=== PATIENT | female | born 1945 | race Hispanic/Latino ===

== ENCOUNTER 2019-09-23 10:49 | Outpatient (CLI) | payer MEDICARE, MEDICAID ==
--- NOTE | 2019-09-26 11:09 | MMO ---
Bilateral MAMMO Bilat Screen [facility]. CLINICAL HISTORY: Patient is 73 years old and is seen for screening. The patient has no family history of breast cancer. The patient has no personal history of cancer. VIEWS: The views performed were: bilateral craniocaudal with tomosynthesis and bilateral mediolateral oblique with tomosynthesis. FILMS COMPARED: The present examination has been compared to prior imaging studies performed at [facility] on 05/08/2000, 06/24/2004, 01/21/2006 and 01/22/2007. This study has been interpreted with the assistance of computer-aided detection. MAMMOGRAM FINDINGS: There are scattered fibroglandular densities. There are no suspicious masses, suspicious calcifications, or new areas of architectural distortion. IMPRESSION: THERE IS NO MAMMOGRAPHIC EVIDENCE OF MALIGNANCY. A ROUTINE FOLLOW-UP MAMMOGRAM IN 1 YEAR IS RECOMMENDED. THE RESULTS OF THIS EXAM WERE SENT TO THE PATIENT. ACR BI-RADS Category 1 - Negative MAMMOGRAPHY NOTE: 1. A negative mammogram report should not delay a biopsy if a dominant of clinically suspicious mass is present. 2. Approximately 10% to 15% of breast cancers are not detected by mammography. 3. Adenosis and dense breasts may obscure an underlying neoplasm. Reported by: Linda ROSAS Electonically Signed: [id number]
== END 2019-09-23 10:50 | disposition home or self-care (01) ==
LOC: BICMAMMO 10:49
PROVIDERS: ATTEND Family Medicine
DX: Z12.31 Encounter for screening mammogram for malignant neoplasm of breast (principal)
CPT/HCPCS: 77063; 77067

== ENCOUNTER 2020-08-24 15:27 | Outpatient (CLI) | payer MEDICARE, MEDICAID ==
--- NOTE | 2020-08-24 16:58 | RAD ---
EXAM: 3 views of the right toe HISTORY: First metatarsal pain COMPARISON: None FINDINGS: There is no evidence of acute fracture or dislocation. No osseous erosions are seen. 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 Mild plantar soft tissue swelling is seen. Mild great toe interphalangeal joint degenerative changes are p resent. No radiopaque foreign body is seen. Vascular calcifications are seen. IMPRESSION: Degenerative changes without acute osseous abnormality.
== END 2020-08-24 15:28 | disposition home or self-care (01) ==
LOC: BICRAD 15:27
DX: S99.921A Unspecified injury of right foot, initial encounter (principal); M19.071 Primary osteoarthritis, right ankle and foot

== ENCOUNTER 2021-02-03 17:47 | Emergency (ER) | payer MEDICARE, MEDICAID ==
[2021-02-03] MEDS ORDERED: Ketorolac Tromethamine 30 MG/ML VIAL ONE (18:45)
== END 2021-02-03 19:20 | disposition home or self-care (01) ==
LOC: ERS 17:47
DX: R51.9 Headache, unspecified (principal); E11.9 Type 2 diabetes mellitus without complications
CPT/HCPCS: 70450; 96372; J1885

== ENCOUNTER 2023-12-30 08:04 | Inpatient (IN) | payer MEDICAID, MEDICARE ==
[2023-12-30 09:12] LABS: #Basophils 0.05 10x3/uL (0.0-0.2); %Basophils 0.5 % (0.0-1.0); %Eosinophils 3.6 % (0.0-10.0); %Lymphocytes 11.6 % (21.0-51.0); %Monocytes 3.8 % (0.0-10.0); Hemoglobin 13.9 g/dL (12.0-16.0); Mean Corpuscular HGB CONC 34.8 g/dL (32.0-36.0); Mean Corpuscular Hemoglobin 29.9 pg (27.0-31.0); Mean Platelet Volume 10.6 fL (7.4-10.4); Platelet Count 162 10x3/uL (130-400); RBC Distribution Width 12.1 % (11.5-14.5); Red Blood Cell (RBC) Count 4.65 mill/uL (4.20-5.40)
[2023-12-30] MEDS ORDERED: Acetaminophen 500 MG TAB ONE (09:17)
[2023-12-30 09:26] LABS: ALT (SGPT) 7 U/L (8-55); AST (SGOT) 18 U/L (5-34); Alkaline Phosphatase 122 U/L (40-110); Anion Gap 12 mmol/L (10-20); BUN (Urea Nitrogen) 21 mg/dL (9.8-20.1); Bilirubin, Total 0.5 mg/dL (0.2-1.2); Calc. Creatinine Clearance 0 mL/min (70-130); Calcium 8.8 mg/dL (7.8-10.44); Carbon Dioxide 26 mmol/L (23-31); Chloride 103 mmol/L (98-107); Estimated GFR 42; Globulin 3.8 g/dL (2.4-3.5); Glucose 343 mg/dL (83-110); Lipase 6 U/L (8-78); Magnesium 1.9 mg/dL (1.6-2.6); Potassium 4.8 mmol/L (3.5-5.1); Protein, Total 6.8 g/dL (5.8-8.1); Sodium 136 mmol/L (136-145)
[2023-12-30 09:31] LABS: Troponin I 0.061 ng/mL (< 0.028)
[2023-12-30 09:42] LABS: Digoxin Less than 0.19 ng/mL (0.8-2.0)
[2023-12-30] MEDS ORDERED: Aspirin Chewable 81 MG TAB ONE (10:50)
[2023-12-30] MEDS ORDERED: Iopamidol-370 76% 500 ML MDV (1 ML CHARGE) ONE (11:14)
[2023-12-30] MEDS ORDERED: Senokot S 8.6-50 MG TAB PO PRN (11:42)
[2023-12-30] MEDS ORDERED: Ondansetron PF 4 MG/2 ML Vial IVP PRN (11:42)
[2023-12-30] MEDS ORDERED: Cyclobenzaprine 10 MG TAB PO PRN (11:43)
[2023-12-30] MEDS ORDERED: Dextrose 50% Abboject 50 ML SYRINGE SLOW IVP PRN (11:44)
[2023-12-30] MEDS ORDERED: HumaLOG 300 UNITS/3 ML VIAL SC PRN (11:44)
[2023-12-30] MEDS ORDERED: Dextrose 5% in Water 1,000 ML IV PRN (11:44)
[2023-12-30] MEDS ORDERED: Glucagon 1 MG/ML KIT IM PRN (11:44)
[2023-12-30] MEDS ORDERED: Albuterol 2.5 MG (3 mL) NEB NEB PRN (11:48)
[2023-12-30] MEDS ORDERED: Benzonatate 100 MG CAP PO PRN (11:48)
[2023-12-30] MEDS ORDERED: Furosemide 40 MG (4 mL) VIAL ONE (12:39)
[2023-12-30] MEDS ORDERED: Loratadine 10 MG TAB ONE (12:40)
[2023-12-30] MEDS ORDERED: Furosemide 20 MG (2 mL) VIAL ONE (12:40)
[2023-12-30 12:41] LABS: Troponin I 0.057 ng/mL (< 0.028)
[2023-12-30] MEDS: Amlodipine 10 MG TAB PO SCH (12:53)
[2023-12-30] MEDS: Loratadine 5 MG/5 ML ORAL SYRUP UDCUP PO SCH (12:55)
[2023-12-30] MEDS: Insulin Glargine 30 UNITS/0.3 ML VIAL SC SCH (12:55)
[2023-12-30] MEDS: Furosemide 40 MG (4 mL) VIAL SLOW IVP SCH (13:00)
[2023-12-30 13:45] VITALS: BMI 53.8
[2023-12-30] MEDS: Calcium Carbonate 500 MG ChewTAB PO PRN (16:18)
[2023-12-30] MEDS: Albumin 25% 25 GM (100 mL) BOT IVPB SCH (16:18)
[2023-12-30] MEDS: glipiZIDE 5 MG TAB PO SCH (17:19)
[2023-12-30 17:22] LABS: Troponin I 0.067 ng/mL (< 0.028)
[2023-12-30] MEDS: HumaLOG 300 UNITS/3 ML VIAL SC PRN (17:35)
[2023-12-30] MEDS: Atorvastatin Calcium 40 MG TAB PO SCH (20:45)
[2023-12-30] MEDS: Montelukast Sodium 10 mg Tablet PO SCH (20:45)
[2023-12-31 04:30] LABS: #Basophils 0.06 10x3/uL (0.0-0.2); %Basophils 0.8 % (0.0-1.0); %Eosinophils 5.2 % (0.0-10.0); %Lymphocytes 20.1 % (21.0-51.0); %Monocytes 5.5 % (0.0-10.0); %Neutrophils 68.1 % (42.0-75.0); Hematocrit 36.5 % (36.0-47.0); Hemoglobin 12.2 g/dL (12.0-16.0); Mean Corpuscular HGB CONC 33.4 g/dL (32.0-36.0); Mean Corpuscular Hemoglobin 28.8 pg (27.0-31.0); Mean Corpuscular Volume 86.3 fL (78.0-98.0); Mean Platelet Volume 10.5 fL (7.4-10.4); Platelet Count 162 10x3/uL (130-400); RBC Distribution Width 12.1 % (11.5-14.5); Red Blood Cell (RBC) Count 4.23 mill/uL (4.20-5.40)
[2023-12-31 04:40] LABS: Hemoglobin A1c 10.2 % (4.0-6.0)
[2023-12-31 04:48] LABS: ALT (SGPT) 7 U/L (8-55); AST (SGOT) 16 U/L (5-34); Albumin 4.1 g/dL (3.4-4.8); Alkaline Phosphatase 84 U/L (40-110); Anion Gap 13 mmol/L (10-20); BUN (Urea Nitrogen) 20 mg/dL (9.8-20.1); Bilirubin, Total 0.4 mg/dL (0.2-1.2); Calc. Creatinine Clearance 63 mL/min (70-130); Calcium 9.4 mg/dL (7.8-10.44); Carbon Dioxide 25 mmol/L (23-31); Cardiac Risk 4.9 (Less than 4.5); Chloride 103 mmol/L (98-107); Cholesterol 163 mg/dl (< 200 Desired); Estimated GFR 43; Glucose 98 mg/dL (83-110); HDL Cholesterol 33 mg/dL (>60 Neg Risk); LDL Cholesterol, Calculated 93 mg/dL; Magnesium 2.1 mg/dL (1.6-2.6); Potassium 4.2 mmol/L (3.5-5.1); Protein, Total 7.1 g/dL (5.8-8.1); Sodium 137 mmol/L (136-145); Triglycerides 184 mg/dL (Less than 150)
[2023-12-31] MEDS: Furosemide 20 MG (2 mL) VIAL SLOW IVP SCH (06:13)
[2023-12-31] MEDS: Loratadine 10 MG TAB PO SCH (08:56)
[2023-12-31] MEDS: Pantoprazole DR 40 MG TAB PO SCH (08:56)
[2023-12-31] MEDS: Aspirin 81 mg Enteric Coated Tablet PO SCH (08:56)
[2023-12-31] MEDS: Enoxaparin 40 MG (0.4 mL) SYRINGE SC SCH (08:56)
[2023-12-31] MEDS: cefTRIAXone\\ROCEPHIN 1 GM in Sodium Chloride 0.9% 100 ML IVPB SCH (11:55)
[2023-12-31] MEDS: Insulin Glargine 30 UNITS/0.3 ML VIAL SC SCH (12:00)
[2023-12-31] MEDS: Azithromycin 500 MG in Sodium Chloride 0.9% 250 ML 250 ML IVPB SCH (12:33)
[2023-12-31] MEDS: Acetaminophen 325 MG TAB PO PRN (18:11)
[2023-12-31 22:40] LABS: Magnesium 1.9 mg/dL (1.6-2.6); Potassium 4.2 mmol/L (3.5-5.1)
[2024-01-01 04:23] LABS: #Basophils 0.04 10x3/uL (0.0-0.2); %Basophils 0.5 % (0.0-1.0); %Eosinophils 6.1 % (0.0-10.0); %Monocytes 7.4 % (0.0-10.0); %Neutrophils 60.5 % (42.0-75.0); Hematocrit 33.9 % (36.0-47.0); Hemoglobin 11.6 g/dL (12.0-16.0); Mean Corpuscular HGB CONC 34.2 g/dL (32.0-36.0); Mean Corpuscular Hemoglobin 29.4 pg (27.0-31.0); Mean Corpuscular Volume 85.8 fL (78.0-98.0); Mean Platelet Volume 10.9 fL (7.4-10.4); Platelet Count 169 10x3/uL (130-400); RBC Distribution Width 12.4 % (11.5-14.5); Red Blood Cell (RBC) Count 3.95 mill/uL (4.20-5.40)
[2024-01-01 04:45] LABS: Anion Gap 12 mmol/L (10-20); BUN (Urea Nitrogen) 24 mg/dL (9.8-20.1); Calc. Creatinine Clearance 27 mL/min (70-130); Carbon Dioxide 27 mmol/L (23-31); Chloride 103 mmol/L (98-107); Estimated GFR 28; Glucose 139 mg/dL (83-110); Potassium 4.2 mmol/L (3.5-5.1); Sodium 138 mmol/L (136-145)
[2024-01-01] MEDS: Enoxaparin 30 MG (0.3 mL) SYRINGE SC SCH (09:56)
[2024-01-01] MEDS: Sodium Chloride 0.9% 1,000 ML IV SCH (10:42)
[2024-01-02 07:11] LABS: #Basophils 0.04 10x3/uL (0.0-0.2); %Basophils 0.6 % (0.0-1.0); %Eosinophils 7.4 % (0.0-10.0); %Monocytes 6.7 % (0.0-10.0); %Neutrophils 64.7 % (42.0-75.0); Hematocrit 35.3 % (36.0-47.0); Hemoglobin 12.1 g/dL (12.0-16.0); Mean Corpuscular HGB CONC 34.3 g/dL (32.0-36.0); Mean Corpuscular Hemoglobin 29.7 pg (27.0-31.0); Mean Corpuscular Volume 86.5 fL (78.0-98.0); Mean Platelet Volume 10.6 fL (7.4-10.4); Platelet Count 158 10x3/uL (130-400); RBC Distribution Width 12.3 % (11.5-14.5); Red Blood Cell (RBC) Count 4.08 mill/uL (4.20-5.40)
[2024-01-02 07:33] LABS: Anion Gap 12 mmol/L (10-20); BUN (Urea Nitrogen) 21 mg/dL (9.8-20.1); Calc. Creatinine Clearance 36 mL/min (70-130); Calcium 8.5 mg/dL (7.8-10.44); Carbon Dioxide 24 mmol/L (23-31); Chloride 107 mmol/L (98-107); Estimated GFR 40; Glucose 130 mg/dL (83-110); Potassium 4.1 mmol/L (3.5-5.1); Sodium 139 mmol/L (136-145)
[2024-01-02 08:28] VITALS: BP 135/63; TEMP 97.9
[2024-01-02] MEDS: Furosemide 20 MG TAB PO SCH (09:05)
[2024-01-04] MEDS ORDERED: Loratadine 10 MG TAB PO PRN (11:59)
== END 2024-01-02 10:30 | disposition home or self-care (01) | DRG 280 ==
LOC: ERS 08:04 → ERHOLD 11:06 → 2SW 15:38 → OBSVTOIN 12-31 16:12
PROVIDERS: ADMIT Internal Medicine; ATTEND Internal Medicine
DX: I13.0 Hypertensive heart and chronic kidney disease with heart failure and stage 1 through stage 4 chronic kidney disease, or unspecified chronic kidney disease (principal); I50.33 Acute on chronic diastolic (congestive) heart failure; I21.A1 Myocardial infarction type 2; J18.9 Pneumonia, unspecified organism; N17.9 Acute kidney failure, unspecified; E11.22 Type 2 diabetes mellitus with diabetic chronic kidney disease; E11.65 Type 2 diabetes mellitus with hyperglycemia; E78.5 Hyperlipidemia, unspecified; I25.10 Atherosclerotic heart disease of native coronary artery without angina pectoris; J30.2 Other seasonal allergic rhinitis; N18.30 Chronic kidney disease, stage 3 unspecified; Z79.899 Other long term (current) drug therapy; Z79.84 Long term (current) use of oral hypoglycemic drugs
CPT/HCPCS: 36415; 36416; 71045; 71275; 74174; 80048; 80053; 80061; 80162; 83036; 83690; 83735; 83880; 84443; 84484; 85025; 93005; 93306; 93798; 96372; 96374; 96375; 96376; G0378; J0456; J0696; J1650; J1815; J1940; J3490; J7050; P9047; Q9967

== ENCOUNTER 2024-07-06 16:43 | Inpatient (IN) | payer MEDICARE ==
[2024-07-06] MEDS ORDERED: Acetaminophen 500 MG TAB ONE (17:29)
[2024-07-06 17:32] LABS: Hematocrit 37.3 % (36.0-47.0); Hemoglobin 12.6 g/dL (12.0-16.0); Mean Corpuscular HGB CONC 33.8 g/dL (32.0-36.0); Mean Corpuscular Hemoglobin 29.2 pg (27.0-31.0); Mean Corpuscular Volume 86.3 fL (78.0-98.0); Mean Platelet Volume 11.5 fL (7.4-10.4); Platelet Count 67 10x3/uL (130-400); RBC Distribution Width 12.8 % (11.5-14.5); Red Blood Cell (RBC) Count 4.32 mill/uL (4.20-5.40)
[2024-07-06] MEDS ORDERED: Cefepime 2 GM VIAL ONE (17:37)
[2024-07-06] MEDS ORDERED: Sodium Chloride 0.9% 100 ML ONE (17:37)
[2024-07-06 17:52] LABS: ALT (SGPT) 10 U/L (8-55); AST (SGOT) 21 U/L (5-34); Albumin 2.9 g/dL (3.4-4.8); Alkaline Phosphatase 172 U/L (40-110); Anion Gap 15 mmol/L (10-20); BUN (Urea Nitrogen) 34 mg/dL (9.8-20.1); Bilirubin, Total 0.9 mg/dL (0.2-1.2); Calc. Creatinine Clearance 0 mL/min (70-130); Calcium 8.3 mg/dL (7.8-10.44); Carbon Dioxide 18 mmol/L (23-31); Chloride 104 mmol/L (98-107); Estimated GFR 19; Globulin 3.6 g/dL (2.4-3.5); Glucose 352 mg/dL (83-110); Potassium 4.4 mmol/L (3.5-5.1); Protein, Total 6.5 g/dL (5.8-8.1); Sodium 133 mmol/L (136-145)
[2024-07-06 17:54] LABS: Troponin I 0.125 ng/mL (< 0.028)
[2024-07-06 18:01] LABS: Band 24 % (5-11); Eosinophils 1 % (0-10); Large Platelets 3.8 % (0-5); Lymphocytes 21 % (21-51); Monocytes 1 % (0-10); Neutrophil 54 % (42-75); Nucleated RBC (Manual Ct) 1 % (0); Platelet Adequacy Comment Platelets Decreased; Polychromasia SLIGHT = 2-3 cells HPF (0-2); Smudge Cells 11.3 %
[2024-07-06 18:47] LABS: Analyzer IN Cardio ER; Base Excess -6.8 mEq/L (-2.0 to +3.0); Calcium, Ionized (venous) 1.03 mmol/L (1.16-1.32); Chloride (VBG) 104 mmol/L (98-106); Hematocrit-VBG 35 % (36.0-47.0); Hemoglobin (Hb) 11.8 g/dL (11.7-16.1); Potassium (VBG) 3.86 mmol/L (3.70-5.30); Sodium 135 mmol/L (133-146); pH (venous) 7.346 (7.32-7.43)
[2024-07-06 19:18] LABS: Lipase Less than 4 U/L (8-78); Magnesium 1.8 mg/dL (1.6-2.6)
[2024-07-06 19:23] LABS: Phosphorus 1.2 mg/dL (2.3-4.7)
[2024-07-06] MEDS ORDERED: Ondansetron PF 4 MG/2 ML Vial ONE (19:30)
[2024-07-06] MEDS ORDERED: NOREPINEPHRINE 8 MG/250 ML-D5W 250 ML ONE (19:44)
[2024-07-06 20:36] LABS: Bilirubin Negative (Negative); Blood, Urine 3+ (Negative); CAUTI Indications for Culture Dysuria,urgency,freq; Clarity Turbid (Clear); Glucose, Urine (Dipstick) Greater than 1000 mg/dL (Negative); Ketone, Urine Negative (Negative); Leukocyte 500 Leu/uL (Negative); Nitrite Negative (Negative); Protein, Urine (Dipstick) 100 mg/dL (Neg-Trace); RBC/HPF Greater than 50 HPF (0-3); Specific Gravity, Urine 1.021 (1.002-1.036); Squamous Epithelial 0-3 HPF (0-3); Urobilinogen Normal mg/dL (Less than 2); WBC/HPF Greater than 50 HPF (0-3); pH, Urine 5.5 (5.0-9.0)
[2024-07-06 20:38] LABS: Bacteria/HPF Rare-Few HPF (None Seen)
[2024-07-06 20:39] LABS: Urine Culture Reflex Yes Yes
[2024-07-06 21:00] LABS: Lactic Acid 4.96 mmol/L (0.5-2.2)
[2024-07-06] MEDS ORDERED: Ondansetron ODT 4 MG TAB SL PRN (23:00)
[2024-07-06 23:33] LABS: Troponin I 0.176 ng/mL (< 0.028)
[2024-07-06] MEDS ORDERED: Glucagon 1 MG/ML KIT IM PRN (23:59)
[2024-07-06] MEDS ORDERED: Insulin Lispro 100 UNIT/ML 10 ML VIAL SC PRN (23:59)
[2024-07-06] MEDS ORDERED: Dextrose 5% in Water 1,000 ML IV PRN (23:59)
[2024-07-07] MEDS: Magnesium 2 GM/50 ML(in water) 2 GM in Premix 1 BAG IVPB SCH (01:12)
[2024-07-07] MEDS: Lactated Ringer's 1,000 ML IV SCH ×2 (01:12→23:49)
[2024-07-07] MEDS: traMADol HCl 50 MG TAB PO PRN ×2 (01:12→20:50)
[2024-07-07] MEDS: Ondansetron PF 4 MG/2 ML Vial IVP PRN (01:12)
[2024-07-07] MEDS: Vancomycin (BATCH) 1.75 GM in Premix 1 BAG IVPB SCH (01:13)
[2024-07-07 01:26] LABS: Lactic Acid 3.26 mmol/L (0.5-2.2)
[2024-07-07] MEDS: Potassium Phosphate 22 MMOL in Sodium Chloride 0.9% 250 ML 250 ML IVPB SCH (01:42)
[2024-07-07] MEDS ORDERED: Vancomycin Dose by Levels Sliding Scale (Wt 71-99) FS SCH (01:45)
[2024-07-07] MEDS ORDERED: Cefepime 2 GM in Sodium Chloride 0.9% 100 ML IVPB SCH (02:00)
[2024-07-07 02:12] LABS: Troponin I 0.386 ng/mL (< 0.028)
[2024-07-07] MEDS: Albumin 25% 25 GM (100 mL) BOT IVPB SCH (02:54)
[2024-07-07] MEDS: Lactated Ringer's 500 ML IV SCH ×2 (03:15→06:39)
[2024-07-07 04:40] LABS: Hematocrit 30.4 % (36.0-47.0); Hemoglobin 10.1 g/dL (12.0-16.0); Mean Corpuscular HGB CONC 33.2 g/dL (32.0-36.0); Mean Corpuscular Hemoglobin 29.1 pg (27.0-31.0); Mean Corpuscular Volume 87.6 fL (78.0-98.0); Mean Platelet Volume 12.9 fL (7.4-10.4); Platelet Count 55 10x3/uL (130-400); RBC Distribution Width 13.2 % (11.5-14.5); Red Blood Cell (RBC) Count 3.47 mill/uL (4.20-5.40)
[2024-07-07 04:44] LABS: ALT (SGPT) 17 U/L (8-55); AST (SGOT) 39 U/L (5-34); Albumin 2.5 g/dL (3.4-4.8); Alkaline Phosphatase 145 U/L (40-110); Anion Gap 14 mmol/L (10-20); BUN (Urea Nitrogen) 38 mg/dL (9.8-20.1); Bilirubin, Total 0.5 mg/dL (0.2-1.2); Calc. Creatinine Clearance 19 mL/min (70-130); Calcium 7.3 mg/dL (7.8-10.44); Carbon Dioxide 17 mmol/L (23-31); Chloride 109 mmol/L (98-107); Estimated GFR 16; Globulin 2.7 g/dL (2.4-3.5); Glucose 165 mg/dL (83-110); Magnesium 2.6 mg/dL (1.6-2.6); Potassium 3.7 mmol/L (3.5-5.1); Protein, Total 5.2 g/dL (5.8-8.1); Sodium 136 mmol/L (136-145)
[2024-07-07 04:59] LABS: Phosphorus 1.7 mg/dL (2.3-4.7)
[2024-07-07] MEDS: Morphine 2 MG/ML VIAL SLOW IVP SCH (04:59)
[2024-07-07 05:07] LABS: Band 31 % (5-11); Large Platelets 0.9 % (0-5); Metamyelocyte 1 % (0-0); Monocytes 3 % (0-10); Myelocyte 1 % (0-0); Neutrophil 65 % (42-75); Platelet Adequacy Comment Platelets Decreased; RBC Morphology Within Normal Limits; Smudge Cells 5.6 %
[2024-07-07] MEDS ORDERED: Potassium Phosphate 15 MMOL in Sodium Chloride 0.9% 250 ML 250 ML IVPB SCH (06:00)
[2024-07-07] MEDS: Cefepime 1 GM in Sodium Chloride 0.9% 100 ML IVPB SCH (06:44)
[2024-07-07] MEDS ORDERED: traMADol HCl 50 MG TAB PO PRN (07:22)
[2024-07-07] MEDS: Acetaminophen 325 MG TAB PO PRN (08:09)
[2024-07-07] MEDS: Pantoprazole DR 40 MG TAB PO SCH (08:11)
[2024-07-07] MEDS: NOREPINEPHRINE 8 MG/250 ML-D5W 250 ML IVPB SCH ×2 (09:44→10:43)
[2024-07-07] MEDS: Pantoprazole 40 MG VIAL IVP SCH (10:35)
[2024-07-07] MEDS: Meropenem 1 GM in Sodium Chloride 0.9% 100 ML IVPB SCH (14:00)
[2024-07-07] MEDS: Meropenem 500 MG in Sodium Chloride 0.9% 100 ML IVPB SCH (21:36)
[2024-07-08 05:16] LABS: Hematocrit 33.4 % (36.0-47.0); Mean Corpuscular HGB CONC 32.9 g/dL (32.0-36.0); Mean Corpuscular Hemoglobin 28.7 pg (27.0-31.0); Mean Corpuscular Volume 87.2 fL (78.0-98.0); Platelet Count 44 10x3/uL (130-400); Red Blood Cell (RBC) Count 3.83 mill/uL (4.20-5.40)
[2024-07-08 05:30] LABS: Anion Gap 15 mmol/L (10-20); BUN (Urea Nitrogen) 45 mg/dL (9.8-20.1); Calc. Creatinine Clearance 18 mL/min (70-130); Carbon Dioxide 16 mmol/L (23-31); Chloride 106 mmol/L (98-107); Estimated GFR 14; Glucose 232 mg/dL (83-110); Magnesium 2.2 mg/dL (1.6-2.6); Phosphorus 4.4 mg/dL (2.3-4.7); Potassium 5.3 mmol/L (3.5-5.1); Sodium 132 mmol/L (136-145)
[2024-07-08 06:05] LABS: #Basophils 0.08 10x3/uL (0.0-0.2); #Eosinophils Less than 0.03 10x3/uL (0.0-0.7); %Basophils 0.4 % (0.0-1.0); %Lymphocytes 3.7 % (21.0-51.0); %Monocytes 2.3 % (0.0-10.0); %Neutrophils 91.4 % (42.0-75.0)
[2024-07-08] MEDS: Insulin Lispro 100 UNIT/ML 10 ML VIAL SC PRN (06:10)
[2024-07-08] MEDS: Pantoprazole 40 MG VIAL IVP SCH (08:40)
[2024-07-08 12:34] LABS: Anion Gap 19 mmol/L (10-20); BUN (Urea Nitrogen) 45 mg/dL (9.8-20.1); Calc. Creatinine Clearance 18 mL/min (70-130); Calcium 7.3 mg/dL (7.8-10.44); Carbon Dioxide 12 mmol/L (23-31); Chloride 107 mmol/L (98-107); Estimated GFR 14; Glucose 150 mg/dL (83-110); Potassium 5.6 mmol/L (3.5-5.1); Sodium 132 mmol/L (136-145)
[2024-07-08] MEDS ORDERED: Morphine 2 MG/ML VIAL SLOW IVP PRN (13:24)
[2024-07-08] MEDS: Promethazine HCl 12.5 MG in Sodium Chloride 0.9% 50 ML IVPB PRN (16:18)
[2024-07-08] MEDS ORDERED: Sodium Polystyrene Sulfonate 15 GM (60 mL) BOT PO SCH (18:00)
[2024-07-08] MEDS: Dextrose 50% Abboject 50 ML SYRINGE SLOW IVP PRN (18:26)
[2024-07-08] MEDS: Sodium Bicarbonate 150 MEQ in Dextrose 5% in Water 1,000 ML IV SCH (18:36)
[2024-07-08] MEDS ORDERED: Lactated Ringer's 500 ML IV SCH (18:45)
[2024-07-08] MEDS: Aspirin 325 mg Enteric Coated Tablet PO SCH (19:34)
[2024-07-08] MEDS: Sodium Polystyrene Sulfonate 15 GM (60 mL) BOT PO SCH (20:58)
[2024-07-08] MEDS: Metoclopramide HCl 10 MG (2 mL) VIAL IVP SCH (20:59)
[2024-07-08] MEDS: diphenhydrAMINE 50 MG/ML VIAL IVP SCH (21:06)
[2024-07-08] MEDS: diphenhydrAMINE 50 MG/ML VIAL ONE (21:06)
[2024-07-08 22:15] LABS: Anion Gap 14 mmol/L (10-20); BUN (Urea Nitrogen) 46 mg/dL (9.8-20.1); Calc. Creatinine Clearance 17 mL/min (70-130); Calcium 7.1 mg/dL (7.8-10.44); Carbon Dioxide 18 mmol/L (23-31); Chloride 106 mmol/L (98-107); Estimated GFR 13; Glucose 197 mg/dL (83-110); Potassium 4.8 mmol/L (3.5-5.1); Sodium 133 mmol/L (136-145)
[2024-07-09 04:05] LABS: Hematocrit 31.3 % (36.0-47.0); Hemoglobin 10.5 g/dL (12.0-16.0); Mean Corpuscular HGB CONC 33.5 g/dL (32.0-36.0); Mean Corpuscular Hemoglobin 28.8 pg (27.0-31.0); Mean Corpuscular Volume 85.8 fL (78.0-98.0); Mean Platelet Volume 13.3 fL (7.4-10.4); Platelet Count 30 10x3/uL (130-400); RBC Distribution Width 14.2 % (11.5-14.5); Red Blood Cell (RBC) Count 3.65 mill/uL (4.20-5.40)
[2024-07-09 04:17] LABS: Anion Gap 12 mmol/L (10-20); BUN (Urea Nitrogen) 50 mg/dL (9.8-20.1); Calc. Creatinine Clearance 17 mL/min (70-130); Calcium 7.2 mg/dL (7.8-10.44); Carbon Dioxide 20 mmol/L (23-31); Chloride 104 mmol/L (98-107); Estimated GFR 13; Glucose 160 mg/dL (83-110); Potassium 4.4 mmol/L (3.5-5.1); Sodium 132 mmol/L (136-145)
[2024-07-09 04:31] LABS: Band 16 % (5-11); Eosinophils 2 % (0-10); Hypochromia SLIGHT = 6-15 cells HPF (0-5); Lymphocytes 7 % (21-51); Monocytes 11 % (0-10); Neutrophil 65 % (42-75); Platelet Adequacy Comment Platelets Decreased; Polychromasia SLIGHT = 2-3 cells HPF (0-2)
[2024-07-09] MEDS: dilTIAZem 25 MG/5 ML VIAL ONE (06:47)
[2024-07-09] MEDS: Lactated Ringer's 500 ML IV SCH (06:48)
[2024-07-09] MEDS: NOREPINEPHRINE 8 MG/250 ML-D5W 250 ML IVPB SCH (08:19)
[2024-07-09] MEDS: Aspirin 81 mg Enteric Coated Tablet PO SCH (08:19)
[2024-07-09] MEDS ORDERED: Aspirin 325 mg Enteric Coated Tablet PO SCH (09:00)
[2024-07-09] MEDS: Sodium Bicarbonate 150 MEQ in Dextrose 5% in Water 1,000 ML IV SCH (09:25)
[2024-07-10 05:00] LABS: Hematocrit 28.4 % (36.0-47.0); Hemoglobin 9.5 g/dL (12.0-16.0); Mean Corpuscular HGB CONC 33.5 g/dL (32.0-36.0); Mean Corpuscular Hemoglobin 29.4 pg (27.0-31.0); Mean Corpuscular Volume 87.9 fL (78.0-98.0); Mean Platelet Volume 13.6 fL (7.4-10.4); Platelet Count 23 10x3/uL (130-400); RBC Distribution Width 14.2 % (11.5-14.5); Red Blood Cell (RBC) Count 3.23 mill/uL (4.20-5.40)
[2024-07-10 05:08] LABS: Anion Gap 11 mmol/L (10-20); BUN (Urea Nitrogen) 46 mg/dL (9.8-20.1); Calc. Creatinine Clearance 20 mL/min (70-130); Calcium 7.1 mg/dL (7.8-10.44); Carbon Dioxide 25 mmol/L (23-31); Chloride 102 mmol/L (98-107); Estimated GFR 15; Glucose 150 mg/dL (83-110); Potassium 4.3 mmol/L (3.5-5.1); Sodium 134 mmol/L (136-145)
[2024-07-10 05:56] LABS: Anisocytosis SLIGHT = 6-15 cells HPF (0-5); Band 11 % (5-11); Hypochromia SLIGHT = 6-15 cells HPF (0-5); Lymphocytes 6 % (21-51); Monocytes 2 % (0-10); Neutrophil 78 % (42-75); Plasma Cells 1 % (0-0); Platelet Adequacy Comment Platelets Decreased; Polychromasia MODERATE = 3-4 cells HPF (0-2); Reactive Lymphocytes 1 % (0-10)
[2024-07-10] MEDS: FLU (Fluad Triv) TS24-25 (65UP)/MF59C/PF 45 MCG/0.5 ML Syringe IM ONE (08:29)
[2024-07-10] MEDS: Lactated Ringer's 1,000 ML IV SCH (09:13)
[2024-07-10] MEDS: Midodrine HCl 5 MG TAB PO SCH (11:34)
[2024-07-10] MEDS ORDERED: dilTIAZem 125 MG in Sodium Chloride 0.9% 100 ML IVPB SCH (14:15)
[2024-07-10] MEDS: Pantoprazole 40 MG VIAL IVP SCH (20:45)
[2024-07-11 04:53] LABS: #Basophils 0.06 10x3/uL (0.0-0.2); %Basophils 0.5 % (0.0-1.0); %Eosinophils 2.6 % (0.0-10.0); %Lymphocytes 10.1 % (21.0-51.0); %Monocytes 6.2 % (0.0-10.0); %Neutrophils 79.9 % (42.0-75.0); Hematocrit 29.3 % (36.0-47.0); Hemoglobin 9.6 g/dL (12.0-16.0); Mean Corpuscular HGB CONC 32.8 g/dL (32.0-36.0); Mean Corpuscular Hemoglobin 29.1 pg (27.0-31.0); Mean Corpuscular Volume 88.8 fL (78.0-98.0); Platelet Count 24 10x3/uL (130-400); RBC Distribution Width 13.9 % (11.5-14.5)
[2024-07-11 05:10] LABS: Anion Gap 10 mmol/L (10-20); BUN (Urea Nitrogen) 43 mg/dL (9.8-20.1); Calc. Creatinine Clearance 27 mL/min (70-130); Calcium 7.3 mg/dL (7.8-10.44); Carbon Dioxide 25 mmol/L (23-31); Chloride 105 mmol/L (98-107); Estimated GFR 21; Glucose 121 mg/dL (83-110); Potassium 4.1 mmol/L (3.5-5.1); Sodium 136 mmol/L (136-145)
[2024-07-11] MEDS: Albumin 25% 25 GM (100 mL) BOT IVPB SCH ×2 (15:31→22:35)
[2024-07-11] MEDS: Lactated Ringer's 500 ML IV SCH (19:00)
[2024-07-12 04:15] LABS: Hematocrit 29.4 % (36.0-47.0); Hemoglobin 9.7 g/dL (12.0-16.0); Mean Corpuscular Hemoglobin 29.5 pg (27.0-31.0); Mean Corpuscular Volume 89.4 fL (78.0-98.0); Mean Platelet Volume 13.1 fL (7.4-10.4); Platelet Count 37 10x3/uL (130-400); RBC Distribution Width 13.6 % (11.5-14.5); Red Blood Cell (RBC) Count 3.29 mill/uL (4.20-5.40)
[2024-07-12 04:17] LABS: Anion Gap 11 mmol/L (10-20); BUN (Urea Nitrogen) 37 mg/dL (9.8-20.1); Calc. Creatinine Clearance 36 mL/min (70-130); Calcium 7.6 mg/dL (7.8-10.44); Carbon Dioxide 23 mmol/L (23-31); Chloride 106 mmol/L (98-107); Estimated GFR 30; Glucose 115 mg/dL (83-110); Potassium 4.1 mmol/L (3.5-5.1); Sodium 136 mmol/L (136-145)
[2024-07-12 05:26] LABS: Dohle Bodies SLIGHT; Eosinophils 5 % (0-10); Hypochromia SLIGHT = 6-15 cells HPF (0-5); Large Platelets 5.1 % (0-5); Lymphocytes 9 % (21-51); Macrocytosis SLIGHT = 6-15 cells HPF (0-5); Monocytes 4 % (0-10); Neutrophil 82 % (42-75); Ovalocytes SLIGHT = 2-5 cells HPF (0-1); Platelet Adequacy Comment Significant Decrease; Polychromasia SLIGHT = 2-3 cells HPF (0-2); Smudge Cells 11.1 %; Toxic Granulation SLIGHT
[2024-07-12] MEDS ORDERED: Iopamidol-370 76% 500 ML MDV (1 ML CHARGE) ONE (11:56)
[2024-07-12] MEDS: Sodium Chloride 0.9% 1,000 ML IV SCH (12:31)
[2024-07-12] MEDS ORDERED: Albumin 25% 25 GM (100 mL) BOT IVPB SCH (15:00)
[2024-07-12] MEDS: Albumin 25% 25 GM (100 mL) BOT IVPB SCH (15:32)
[2024-07-12] MEDS ORDERED: SUCCINYLCHOLINE/SOD CL,ISO/PF 200 MG/10 ML SYRINGE FS ONE (22:23)
[2024-07-12] MEDS ORDERED: Etomidate 40 MG (20 mL) VIAL ONE (22:23)
[2024-07-12] MEDS ORDERED: Ventilator Sedation Protocol 1 EACH FS SCH (22:45)
[2024-07-12] MEDS: Propofol 1,000 MG/100 ML VIAL IV ONE (22:50)
[2024-07-12 22:54] LABS: Hematocrit 26.9 % (36.0-47.0); Hemoglobin 8.6 g/dL (12.0-16.0); Mean Corpuscular Hemoglobin 28.9 pg (27.0-31.0); Mean Corpuscular Volume 90.3 fL (78.0-98.0); Mean Platelet Volume 12.6 fL (7.4-10.4); Platelet Count 37 10x3/uL (130-400); RBC Distribution Width 13.8 % (11.5-14.5); Red Blood Cell (RBC) Count 2.98 mill/uL (4.20-5.40)
[2024-07-12] MEDS ORDERED: Propofol BOLUS 1,000 MG/100 ML VIAL IV PRN (23:00)
[2024-07-12] MEDS ORDERED: Lorazepam 2 MG/ML VIAL SLOW IVP PRN (23:00)
[2024-07-12] MEDS ORDERED: DISCONTINUE PREVIOUS NARCOTIC PAIN MEDICATIONS AND BENZODIAZEPINES FS SCH (23:00)
[2024-07-12] MEDS ORDERED: Fentanyl CADD 100 ML IV SCH (23:00)
[2024-07-12] MEDS ORDERED: Fentanyl BOLUS 250 ML IVPB PRN (23:00)
[2024-07-12 23:08] LABS: Actual Bicarbonate (HCO3a) 21.3 mEq/L (22-28); Base Excess (BEa) -1.4 mEq/L (-2.0 to +3.0); CO2 Tension 28.6 mmHg (35.0-45.0); Calcium, Ionized (arterial) 1.05 mmol/L (1.12-1.30); Carboxyhemoglobin (COHb) 0.4 gm% (0.0-3.0); Hematocrit-ABG 27 % (36.0-47.0); Hemoglobin (Hb) 9.1 g/dL (12.0-16.0); O2 Tension (PaO2), arterial 120.2 mmHg (> 70.0); Potassium - ABG Lab 4.13 mmol/L (3.70-5.30)
[2024-07-12 23:09] LABS: Puncture Site Right Radial artery
[2024-07-12 23:09] LABS: Lactic Acid 2.39 mmol/L (0.5-2.2)
[2024-07-12 23:13] LABS: ALT (SGPT) 22 U/L (8-55); AST (SGOT) 57 U/L (5-34); Alkaline Phosphatase 195 U/L (40-110); Anion Gap 18 mmol/L (10-20); BUN (Urea Nitrogen) 35 mg/dL (9.8-20.1); Calc. Creatinine Clearance 33 mL/min (70-130); Calcium 7.9 mg/dL (7.8-10.44); Carbon Dioxide 21 mmol/L (23-31); Chloride 105 mmol/L (98-107); Estimated GFR 26; Globulin 1.8 g/dL (2.4-3.5); Glucose 163 mg/dL (83-110); Magnesium 2.3 mg/dL (1.6-2.6); Phosphorus 2.6 mg/dL (2.3-4.7); Protein, Total 5.8 g/dL (5.8-8.1); Sodium 139 mmol/L (136-145)
[2024-07-12 23:20] LABS: Troponin I 0.288 ng/mL (< 0.028)
[2024-07-12 23:21] LABS: Band 15 % (5-11); Eosinophils 2 % (0-10); Hypochromia SLIGHT = 6-15 cells HPF (0-5); Lymphocytes 23 % (21-51); Monocytes 1 % (0-10); Neutrophil 53 % (42-75); Platelet Adequacy Comment Platelets Decreased; Poikilocytosis SLIGHT = 6-15 cells HPF (0-5); Polychromasia SLIGHT = 2-3 cells HPF (0-2); Reactive Lymphocytes 7 % (0-10)
[2024-07-13] MEDS: Furosemide 20 MG (2 mL) VIAL SLOW IVP SCH (00:55)
[2024-07-13] MEDS: Propofol 1,000 MG/100 ML VIAL IV PRN (03:55)
[2024-07-13 04:17] LABS: #Basophils Less than 0.03 10x3/uL (0.0-0.2); %Basophils 0.2 % (0.0-1.0); %Eosinophils 2.3 % (0.0-10.0); %Lymphocytes 13.3 % (21.0-51.0); %Monocytes 6.1 % (0.0-10.0); %Neutrophils 75.8 % (42.0-75.0); Hematocrit 27.2 % (36.0-47.0); Hemoglobin 8.9 g/dL (12.0-16.0); Mean Corpuscular HGB CONC 32.7 g/dL (32.0-36.0); Mean Corpuscular Hemoglobin 29.2 pg (27.0-31.0); Mean Corpuscular Volume 89.2 fL (78.0-98.0); Mean Platelet Volume 13.6 fL (7.4-10.4); Platelet Count 59 10x3/uL (130-400); RBC Distribution Width 13.7 % (11.5-14.5); Red Blood Cell (RBC) Count 3.05 mill/uL (4.20-5.40)
[2024-07-13 04:25] LABS: Anion Gap 17 mmol/L (10-20); BUN (Urea Nitrogen) 33 mg/dL (9.8-20.1); Calc. Creatinine Clearance 40 mL/min (70-130); Calcium 8.3 mg/dL (7.8-10.44); Carbon Dioxide 22 mmol/L (23-31); Chloride 105 mmol/L (98-107); Estimated GFR 34; Glucose 139 mg/dL (83-110); Potassium 3.5 mmol/L (3.5-5.1); Sodium 140 mmol/L (136-145)
[2024-07-13] MEDS: Empagliflozin 10 MG TAB PO SCH (10:09)
[2024-07-13] MEDS: Furosemide 40 MG (4 mL) VIAL SLOW IVP SCH (14:56)
[2024-07-14 05:21] LABS: Anion Gap 16 mmol/L (10-20); BUN (Urea Nitrogen) 32 mg/dL (9.8-20.1); Calc. Creatinine Clearance 35 mL/min (70-130); Calcium 7.9 mg/dL (7.8-10.44); Carbon Dioxide 26 mmol/L (23-31); Chloride 104 mmol/L (98-107); Estimated GFR 31; Glucose 129 mg/dL (83-110); Potassium 3.3 mmol/L (3.5-5.1); Sodium 143 mmol/L (136-145)
[2024-07-14 05:23] LABS: #Basophils Less than 0.03 10x3/uL (0.0-0.2); %Basophils 0.3 % (0.0-1.0); %Eosinophils 3.5 % (0.0-10.0); %Lymphocytes 10.8 % (21.0-51.0); %Monocytes 4.7 % (0.0-10.0); %Neutrophils 78.7 % (42.0-75.0); Hemoglobin 8.9 g/dL (12.0-16.0); Mean Corpuscular Hemoglobin 29.3 pg (27.0-31.0); Mean Corpuscular Volume 88.8 fL (78.0-98.0); Mean Platelet Volume 12.8 fL (7.4-10.4); Platelet Count 60 10x3/uL (130-400); RBC Distribution Width 13.4 % (11.5-14.5); Red Blood Cell (RBC) Count 3.04 mill/uL (4.20-5.40)
[2024-07-14] MEDS ORDERED: Electrolyte Replacement Protocol 1 EACH FS SCH (05:45)
[2024-07-14 07:45] LABS: Actual Bicarbonate (HCO3a) 26.1 mEq/L (22-28); Base Excess (BEa) 2.5 mEq/L (-2.0 to +3.0); CO2 Tension 36.1 mmHg (35.0-45.0); Calcium, Ionized (arterial) 1.03 mmol/L (1.12-1.30); Carboxyhemoglobin (COHb) 0.5 gm% (0.0-3.0); Hematocrit-ABG 27 % (36.0-47.0); Hemoglobin (Hb) 9.3 g/dL (12.0-16.0); O2 Tension (PaO2), arterial 83.6 mmHg (> 70.0); Potassium - ABG Lab 3.19 mmol/L (3.70-5.30); pH, Arterial 7.477 (7.35-7.45)
[2024-07-14 08:05] LABS: ALV-art Gradient 120.825 mmHg (0-20); Puncture Site Left Radial artery
[2024-07-14] MEDS: Potassium Chloride 20 MEQ in Premix 1 BAG IVPB SCH (08:06)
[2024-07-14 16:26] LABS: Potassium 3.5 mmol/L (3.5-5.1)
[2024-07-14] MEDS: Morphine 2 MG/ML VIAL SLOW IVP PRN (21:42)
[2024-07-14] MEDS: Albumin 5% 12.5 GM (250 mL) BOT IVPB SCH (23:13)
[2024-07-15] MEDS: Potassium Chloride 20 MEQ in Premix 1 BAG IVPB SCH (00:30)
[2024-07-15 04:49] LABS: #Basophils Less than 0.03 10x3/uL (0.0-0.2); %Basophils 0.3 % (0.0-1.0); %Eosinophils 4.3 % (0.0-10.0); %Lymphocytes 11.7 % (21.0-51.0); %Monocytes 3.6 % (0.0-10.0); %Neutrophils 78.6 % (42.0-75.0); Hematocrit 24.1 % (36.0-47.0); Hemoglobin 7.8 g/dL (12.0-16.0); Mean Corpuscular HGB CONC 32.4 g/dL (32.0-36.0); Mean Corpuscular Hemoglobin 28.8 pg (27.0-31.0); Mean Corpuscular Volume 88.9 fL (78.0-98.0); Mean Platelet Volume 12.3 fL (7.4-10.4); Platelet Count 77 10x3/uL (130-400); RBC Distribution Width 13.5 % (11.5-14.5); Red Blood Cell (RBC) Count 2.71 mill/uL (4.20-5.40)
[2024-07-15 05:01] LABS: Anion Gap 18 mmol/L (10-20); BUN (Urea Nitrogen) 39 mg/dL (9.8-20.1); Calc. Creatinine Clearance 32 mL/min (70-130); Calcium 7.6 mg/dL (7.8-10.44); Carbon Dioxide 26 mmol/L (23-31); Chloride 103 mmol/L (98-107); Estimated GFR 29; Glucose 169 mg/dL (83-110); Sodium 143 mmol/L (136-145)
[2024-07-15] MEDS ORDERED: Electrolyte Replacement Protocol FS PRN (08:45)
[2024-07-15] MEDS: NOREPINEPHRINE 8 MG/250 ML-D5W 250 ML IVPB SCH (09:05)
[2024-07-15] MEDS: NOREPINEPHRINE 8 MG/250 ML-D5W 0 ML ONE (09:32)
[2024-07-15 15:39] VITALS: BMI 31.8
[2024-07-16 06:10] LABS: #Basophils Less than 0.03 10x3/uL (0.0-0.2); %Basophils 0.4 % (0.0-1.0); %Eosinophils 5.8 % (0.0-10.0); %Lymphocytes 15.9 % (21.0-51.0); %Monocytes 5.8 % (0.0-10.0); %Neutrophils 70.8 % (42.0-75.0); Hematocrit 26.1 % (36.0-47.0); Hemoglobin 8.3 g/dL (12.0-16.0); Mean Corpuscular HGB CONC 31.8 g/dL (32.0-36.0); Mean Corpuscular Hemoglobin 28.7 pg (27.0-31.0); Mean Corpuscular Volume 90.3 fL (78.0-98.0); Mean Platelet Volume 12.6 fL (7.4-10.4); Platelet Count 98 10x3/uL (130-400); RBC Distribution Width 13.7 % (11.5-14.5); Red Blood Cell (RBC) Count 2.89 mill/uL (4.20-5.40)
[2024-07-16 06:46] LABS: Anion Gap 17 mmol/L (10-20); BUN (Urea Nitrogen) 42 mg/dL (9.8-20.1); Calc. Creatinine Clearance 33 mL/min (70-130); Calcium 7.5 mg/dL (7.8-10.44); Carbon Dioxide 27 mmol/L (23-31); Chloride 105 mmol/L (98-107); Estimated GFR 32; Glucose 209 mg/dL (83-110); Potassium 3.5 mmol/L (3.5-5.1); Sodium 145 mmol/L (136-145)
[2024-07-16] MEDS: Empagliflozin 10 MG TAB PER TUBE SCH (07:50)
[2024-07-16] MEDS: Aspirin Chewable 81 MG TAB PER TUBE SCH (07:50)
[2024-07-16] MEDS: Midodrine HCl 5 MG TAB PER TUBE SCH (07:51)
[2024-07-16 08:31] LABS: Actual Bicarbonate (HCO3a) 28.3 mEq/L (22-28); Base Excess (BEa) 4.6 mEq/L (-2.0 to +3.0); CO2 Tension 38.1 mmHg (35.0-45.0); Calcium, Ionized (arterial) 0.99 mmol/L (1.12-1.30); Carboxyhemoglobin (COHb) 0.3 gm% (0.0-3.0); Hematocrit-ABG 30 % (36.0-47.0); Hemoglobin (Hb) 10.2 g/dL (12.0-16.0); O2 Tension (PaO2), arterial 105.4 mmHg (> 70.0); Potassium - ABG Lab 3.36 mmol/L (3.70-5.30); pH, Arterial 7.488 (7.35-7.45)
[2024-07-16 08:32] LABS: Puncture Site Left Radial artery
[2024-07-16 08:33] LABS: ALV-art Gradient 96.525 mmHg (0-20)
[2024-07-16] MEDS: Potassium Chloride 10 MEQ in Premix 1 BAG IVPB SCH (15:00)
[2024-07-16] MEDS: Potassium Chloride 20 MEQ in Premix 1 BAG IVPB SCH (15:09)
[2024-07-17 05:14] LABS: Anion Gap 14 mmol/L (10-20); BUN (Urea Nitrogen) 40 mg/dL (9.8-20.1); Calc. Creatinine Clearance 42 mL/min (70-130); Calcium 7.4 mg/dL (7.8-10.44); Carbon Dioxide 29 mmol/L (23-31); Chloride 107 mmol/L (98-107); Estimated GFR 42; Glucose 169 mg/dL (83-110); Potassium 3.9 mmol/L (3.5-5.1); Sodium 146 mmol/L (136-145)
[2024-07-17 05:24] LABS: #Basophils Less than 0.03 10x3/uL (0.0-0.2); %Basophils 0.4 % (0.0-1.0); %Eosinophils 7.4 % (0.0-10.0); %Lymphocytes 23.7 % (21.0-51.0); %Monocytes 6.6 % (0.0-10.0); %Neutrophils 61.5 % (42.0-75.0); Hematocrit 26.5 % (36.0-47.0); Hemoglobin 8.1 g/dL (12.0-16.0); Mean Corpuscular HGB CONC 30.6 g/dL (32.0-36.0); Mean Corpuscular Volume 91.7 fL (78.0-98.0); Mean Platelet Volume 11.9 fL (7.4-10.4); Platelet Count 117 10x3/uL (130-400); RBC Distribution Width 13.6 % (11.5-14.5); Red Blood Cell (RBC) Count 2.89 mill/uL (4.20-5.40)
[2024-07-17] MEDS: Meropenem 1 GM in Sodium Chloride 0.9% 100 ML IVPB SCH (21:00)
[2024-07-17] MEDS: Enoxaparin 40 MG (0.4 mL) SYRINGE SC SCH (21:00)
[2024-07-18 05:44] VITALS: BMI 31.6
[2024-07-18] MEDS ORDERED: Aluminum & Magnesium Hydroxide 60 ML, Lidocaine 2% Viscous Solution 30 ML, diphenhydrAM... SSW PRN (20:28)
[2024-07-18] MEDS: Calcium Carbonate 500 MG ChewTAB PO PRN (21:23)
[2024-07-19] MEDS: Acetaminophen 650 MG/20.3 ML UDCUP PER TUBE PRN (00:30)
[2024-07-19 05:32] LABS: #Basophils 0.05 10x3/uL (0.0-0.2); %Basophils 0.9 % (0.0-1.0); %Lymphocytes 25.3 % (21.0-51.0); %Monocytes 6.2 % (0.0-10.0); %Neutrophils 64.1 % (42.0-75.0); Hematocrit 27.8 % (36.0-47.0); Hemoglobin 8.4 g/dL (12.0-16.0); Mean Corpuscular HGB CONC 30.2 g/dL (32.0-36.0); Mean Corpuscular Hemoglobin 28.4 pg (27.0-31.0); Mean Corpuscular Volume 93.9 fL (78.0-98.0); Mean Platelet Volume 10.9 fL (7.4-10.4); Platelet Count 176 10x3/uL (130-400); RBC Distribution Width 13.5 % (11.5-14.5); Red Blood Cell (RBC) Count 2.96 mill/uL (4.20-5.40)
[2024-07-19 05:46] LABS: Anion Gap 17 mmol/L (10-20); BUN (Urea Nitrogen) 37 mg/dL (9.8-20.1); Calc. Creatinine Clearance 41 mL/min (70-130); Calcium 7.9 mg/dL (7.8-10.44); Carbon Dioxide 25 mmol/L (23-31); Chloride 110 mmol/L (98-107); Estimated GFR 41; Glucose 125 mg/dL (83-110); Potassium 4.2 mmol/L (3.5-5.1); Sodium 148 mmol/L (136-145)
[2024-07-19] MEDS: Meropenem 1 GM VIAL ONE (22:07)
[2024-07-19] MEDS: QUEtiapine 25 MG TAB PO SCH (22:08)
[2024-07-20 05:14] LABS: Anion Gap 15 mmol/L (10-20); BUN (Urea Nitrogen) 33 mg/dL (9.8-20.1); Calc. Creatinine Clearance 36 mL/min (70-130); Calcium 8.1 mg/dL (7.8-10.44); Carbon Dioxide 25 mmol/L (23-31); Chloride 108 mmol/L (98-107); Estimated GFR 37; Glucose 105 mg/dL (83-110); Magnesium 2.3 mg/dL (1.6-2.6); Potassium 4.1 mmol/L (3.5-5.1); Sodium 144 mmol/L (136-145)
[2024-07-20] MEDS ORDERED: Enoxaparin 30 MG (0.3 mL) SYRINGE SC SCH (21:00)
[2024-07-20] MEDS: Meropenem 500 MG in Sodium Chloride 0.9% 100 ML IVPB SCH (21:13)
[2024-07-21 05:05] LABS: Anion Gap 15 mmol/L (10-20); BUN (Urea Nitrogen) 25 mg/dL (9.8-20.1); Calc. Creatinine Clearance 44 mL/min (70-130); Calcium 8.5 mg/dL (7.8-10.44); Carbon Dioxide 26 mmol/L (23-31); Chloride 109 mmol/L (98-107); Estimated GFR 44; Glucose 80 mg/dL (83-110); Potassium 3.9 mmol/L (3.5-5.1); Sodium 146 mmol/L (136-145)
[2024-07-21] MEDS ORDERED: Vancomycin 1 GM in Premix 1 BAG IVPB SCH (06:00)
[2024-07-21] MEDS ORDERED: CEFAZOLIN 2 GM VIAL ONE (07:10)
[2024-07-21] MEDS ORDERED: Gentamicin 80 MG/2 ML VIAL ONE (07:10)
[2024-07-21] MEDS ORDERED: Vancomycin 1 GM/200 ML (FROZEN) BAG ONE (07:52)
[2024-07-21] MEDS ORDERED: fentaNYL 50 mcg/mL 1 mL Vial ONE (08:14)
[2024-07-21] MEDS ORDERED: ePHEDrine Sulfate 50 MG/10 ML VIAL ONE (08:30)
[2024-07-21] MEDS ORDERED: Dexamethasone 20 MG/5 ML VIAL ONE (08:30)
[2024-07-21] MEDS ORDERED: Iopamidol 370 76% 100 ML VIAL ONE (10:18)
[2024-07-21] MEDS: Amlodipine 5 MG TAB PO SCH (17:30)
[2024-07-22 03:49] LABS: #Basophils 0.04 10x3/uL (0.0-0.2); %Basophils 0.6 % (0.0-1.0); %Eosinophils 7.1 % (0.0-10.0); %Lymphocytes 24.6 % (21.0-51.0); %Monocytes 6.9 % (0.0-10.0); %Neutrophils 60.5 % (42.0-75.0); Hematocrit 28.1 % (36.0-47.0); Hemoglobin 8.9 g/dL (12.0-16.0); Mean Corpuscular HGB CONC 31.7 g/dL (32.0-36.0); Mean Corpuscular Hemoglobin 28.9 pg (27.0-31.0); Mean Corpuscular Volume 91.2 fL (78.0-98.0); Mean Platelet Volume 10.7 fL (7.4-10.4); Platelet Count 191 10x3/uL (130-400); RBC Distribution Width 13.5 % (11.5-14.5); Red Blood Cell (RBC) Count 3.08 mill/uL (4.20-5.40)
[2024-07-22 04:31] LABS: Anion Gap 13 mmol/L (10-20); BUN (Urea Nitrogen) 21 mg/dL (9.8-20.1); Calc. Creatinine Clearance 50 mL/min (70-130); Carbon Dioxide 27 mmol/L (23-31); Chloride 108 mmol/L (98-107); Estimated GFR 53; Glucose 112 mg/dL (83-110); Potassium 3.7 mmol/L (3.5-5.1); Sodium 144 mmol/L (136-145)
[2024-07-22] MEDS: Meropenem 1 GM in Sodium Chloride 0.9% 100 ML IVPB SCH (09:23)
[2024-07-22] MEDS: Amlodipine 5 MG TAB PO SCH (09:25)
[2024-07-22] MEDS: Pantoprazole DR 40 MG TAB PO SCH (09:25)
[2024-07-22 13:21] VITALS: TEMP 98.1
[2024-07-22 16:50] VITALS: BP 147/70
== END 2024-07-22 17:48 | DRG 853 ==
LOC: ERS 16:43 → ERHOLD 22:51 → CCU 07-07 00:29 → 2SE 07-11 11:05 → CCU 07-12 22:35 → 2SE 07-19 23:45
PROVIDERS: ADMIT Internal Medicine; ATTEND Family Medicine
PROC: 0T9B70Z Drainage of Bladder with Drainage Device, Via Natural or Artificial Opening (ICD-10-PCS; principal; 2024-07-06)
PROC: 02HV33Z Insertion of Infusion Device into Superior Vena Cava, Percutaneous Approach (ICD-10-PCS; 2024-07-06)
PROC: 4A133R1 Monitoring of Arterial Saturation, Peripheral, Percutaneous Approach (ICD-10-PCS; 2024-07-06)
PROC: 3E04329 Introduction of Other Anti-infective into Central Vein, Percutaneous Approach (ICD-10-PCS; 2024-07-06)
PROC: 3E043XZ Introduction of Vasopressor into Central Vein, Percutaneous Approach (ICD-10-PCS; 2024-07-06)
PROC: 30243J1 Transfusion of Nonautologous Serum Albumin into Central Vein, Percutaneous Approach (ICD-10-PCS; 2024-07-07)
PROC: 02H633Z Insertion of Infusion Device into Right Atrium, Percutaneous Approach (ICD-10-PCS; 2024-07-13)
PROC: 4A00X4Z Measurement of Central Nervous Electrical Activity, External Approach (ICD-10-PCS; 2024-07-13)
PROC: 5A1955Z Respiratory Ventilation, Greater than 96 Consecutive Hours (ICD-10-PCS; 2024-07-13)
PROC: 02H63KZ Insertion of Defibrillator Lead into Right Atrium, Percutaneous Approach (ICD-10-PCS; 2024-07-21)
PROC: 0JH609Z Insertion of Cardiac Resynchronization Defibrillator Pulse Generator into Chest Subcutaneous Tissue and Fascia, Open Approach (ICD-10-PCS; 2024-07-21)
PROC: 02HK3KZ Insertion of Defibrillator Lead into Right Ventricle, Percutaneous Approach (ICD-10-PCS; 2024-07-21)
DX: A41.9 Sepsis, unspecified organism (principal); G93.41 Metabolic encephalopathy; I21.4 Non-ST elevation (NSTEMI) myocardial infarction; R65.21 Severe sepsis with septic shock; I46.9 Cardiac arrest, cause unspecified; J96.01 Acute respiratory failure with hypoxia; N39.0 Urinary tract infection, site not specified; N17.9 Acute kidney failure, unspecified; I50.32 Chronic diastolic (congestive) heart failure; E87.20 Acidosis, unspecified; E87.0 Hyperosmolality and hypernatremia; I42.2 Other hypertrophic cardiomyopathy; Z79.899 Other long term (current) drug therapy; Z79.4 Long term (current) use of insulin; Z98.890 Other specified postprocedural states; N18.30 Chronic kidney disease, stage 3 unspecified; E11.22 Type 2 diabetes mellitus with diabetic chronic kidney disease; D69.6 Thrombocytopenia, unspecified; D63.1 Anemia in chronic kidney disease; E87.5 Hyperkalemia
CPT/HCPCS: 33249; 36415; 36416; 36556; 36600; 51702; 70450; 71045; 71275; 74018; 76770; 80048; 80053; 81001; 82010; 82805; 83605; 83690; 83735; 83880; 84100; 84484; 85025; 86141; 87040; 87077; 87086; 87149; 87186; 87428; 93005; 93010; 93306; 94002; 94003; 94760; 95705; 96365; 96366; 96367; 96375; 99292; C1763; C1777; C1894; C1898; J0692; J1100; J1200; J1580; J1650; J1815; J1940; J2185; J2272; J2405; J2470; J2550; J2704; J2765; J3010; J3370; J3475; J3480; J7030; J7050; J7070; J7120; J7999; P9045; P9047; Q0163; Q9967

== ENCOUNTER 2024-08-08 10:10 | Inpatient (IN) | payer MEDICARE ==
[2024-08-08 11:07] LABS: #Basophils 0.04 10x3/uL (0.0-0.2); %Basophils 0.7 % (0.0-1.0); %Eosinophils 5.9 % (0.0-10.0); %Lymphocytes 24.4 % (21.0-51.0); %Monocytes 4.8 % (0.0-10.0); %Neutrophils 63.9 % (42.0-75.0); Hematocrit 28.4 % (36.0-47.0); Hemoglobin 9.2 g/dL (12.0-16.0); Mean Corpuscular HGB CONC 32.4 g/dL (32.0-36.0); Mean Corpuscular Hemoglobin 28.8 pg (27.0-31.0); Mean Corpuscular Volume 88.8 fL (78.0-98.0); Mean Platelet Volume 10.4 fL (7.4-10.4); Platelet Count 145 10x3/uL (130-400); RBC Distribution Width 14.7 % (11.5-14.5)
[2024-08-08 11:36] LABS: ALT (SGPT) 10 U/L (8-55); AST (SGOT) 25 U/L (5-34); Albumin 3.5 g/dL (3.4-4.8); Alkaline Phosphatase 140 U/L (40-110); Anion Gap 13 mmol/L (10-20); BUN (Urea Nitrogen) 28 mg/dL (9.8-20.1); Bilirubin, Total 0.5 mg/dL (0.2-1.2); Calc. Creatinine Clearance 0 mL/min (70-130); Calcium 8.5 mg/dL (7.8-10.44); Carbon Dioxide 20 mmol/L (23-31); Chloride 110 mmol/L (98-107); Estimated GFR 32; Globulin 4.8 g/dL (2.4-3.5); Glucose 129 mg/dL (83-110); Potassium 4.3 mmol/L (3.5-5.1); Protein, Total 8.3 g/dL (5.8-8.1); Sodium 139 mmol/L (136-145)
[2024-08-08 11:41] LABS: Troponin I 0.051 ng/mL (< 0.028)
[2024-08-08] MEDS ORDERED: Furosemide 40 MG (4 mL) VIAL ONE (12:39)
[2024-08-08] MEDS ORDERED: Nitroglycerin 2% Ointment 1 INCH/1 GM Packet ONE (12:39)
[2024-08-08 14:30] LABS: Troponin I 0.053 ng/mL (< 0.028)
[2024-08-08] MEDS ORDERED: Acetaminophen 325 MG TAB PO PRN (15:48)
[2024-08-08] MEDS ORDERED: Ondansetron PF 4 MG/2 ML Vial IVP PRN (15:48)
[2024-08-08] MEDS ORDERED: Ondansetron ODT 4 MG TAB PO PRN (15:48)
[2024-08-08] MEDS ORDERED: Acetaminophen 650 MG Suppository PR PRN (15:48)
[2024-08-08] MEDS ORDERED: Senokot S 8.6-50 MG TAB PO PRN (15:48)
[2024-08-08] MEDS ORDERED: Calcium Carbonate 500 MG ChewTAB PO PRN (15:48)
[2024-08-08] MEDS ORDERED: Bisacodyl 5 MG TAB PO PRN (15:48)
[2024-08-08] MEDS ORDERED: Dextrose 50% Abboject 50 ML SYRINGE SLOW IVP PRN (15:51)
[2024-08-08] MEDS ORDERED: Dextrose 5% in Water 1,000 ML IV PRN (15:51)
[2024-08-08] MEDS ORDERED: Insulin Regular, Human 100 UNIT/ML 10 ML VIAL SC PRN ×2 (15:51)
[2024-08-08] MEDS ORDERED: Glucagon 1 MG/ML KIT IM PRN (15:51)
[2024-08-08] MEDS ORDERED: Melatonin 3 MG TAB PO PRN (15:56)
[2024-08-08 17:59] LABS: Troponin I 0.054 ng/mL (< 0.028)
[2024-08-08 20:42] VITALS: BMI 30.9
[2024-08-08] MEDS: QUEtiapine 25 MG TAB PO SCH (21:13)
[2024-08-08] MEDS: Insulin Glargine 30 UNITS/0.3 ML VIAL SC SCH (21:27)
[2024-08-09 04:57] LABS: Anion Gap 11 mmol/L (10-20); BUN (Urea Nitrogen) 29 mg/dL (9.8-20.1); Calc. Creatinine Clearance 35 mL/min (70-130); Calcium 8.5 mg/dL (7.8-10.44); Carbon Dioxide 26 mmol/L (23-31); Chloride 109 mmol/L (98-107); Estimated GFR 33; Glucose 56 mg/dL (83-110); Potassium 4.3 mmol/L (3.5-5.1); Sodium 142 mmol/L (136-145)
[2024-08-09 05:31] LABS: Hematocrit 25.6 % (36.0-47.0); Hemoglobin 8.3 g/dL (12.0-16.0); Mean Corpuscular HGB CONC 32.4 g/dL (32.0-36.0); Mean Corpuscular Hemoglobin 28.7 pg (27.0-31.0); Mean Corpuscular Volume 88.6 fL (78.0-98.0); Mean Platelet Volume 10.8 fL (7.4-10.4); Platelet Count 136 10x3/uL (130-400); RBC Distribution Width 14.6 % (11.5-14.5); Red Blood Cell (RBC) Count 2.89 mill/uL (4.20-5.40)
[2024-08-09] MEDS: Furosemide 40 MG (4 mL) VIAL SLOW IVP SCH (08:42)
[2024-08-09] MEDS: Pantoprazole 40 MG DR.TAB PO SCH (08:42)
[2024-08-09] MEDS: Amlodipine 5 MG TAB PO SCH (08:42)
[2024-08-09] MEDS: Enoxaparin 30 MG (0.3 mL) SYRINGE SC SCH (08:42)
[2024-08-09] MEDS: Empagliflozin 10 MG TAB PO SCH (08:42)
[2024-08-09] MEDS ORDERED: Furosemide 20 MG (2 mL) VIAL SLOW IVP SCH (09:00)
[2024-08-09 09:22] LABS: Band 2 % (5-11); Eosinophils 4 % (0-10); Large Platelets 3.5 % (0-5); Lymphocytes 20 % (21-51); Monocytes 4 % (0-10); Neutrophil 70 % (42-75); Platelet Adequacy Comment Platelets Normal; Polychromasia SLIGHT = 2-3 cells HPF (0-2)
[2024-08-10 04:34] LABS: Anion Gap 12 mmol/L (10-20); BUN (Urea Nitrogen) 28 mg/dL (9.8-20.1); Calc. Creatinine Clearance 32 mL/min (70-130); Calcium 8.7 mg/dL (7.8-10.44); Carbon Dioxide 27 mmol/L (23-31); Chloride 107 mmol/L (98-107); Estimated GFR 31; Glucose 49 mg/dL (83-110); Potassium 4.1 mmol/L (3.5-5.1); Sodium 142 mmol/L (136-145)
[2024-08-10 04:36] LABS: #Basophils 0.04 10x3/uL (0.0-0.2); %Basophils 0.8 % (0.0-1.0); %Eosinophils 10.8 % (0.0-10.0); %Lymphocytes 30.8 % (21.0-51.0); %Monocytes 8.7 % (0.0-10.0); %Neutrophils 48.7 % (42.0-75.0); Hematocrit 27.7 % (36.0-47.0); Hemoglobin 8.8 g/dL (12.0-16.0); Mean Corpuscular HGB CONC 31.8 g/dL (32.0-36.0); Mean Corpuscular Hemoglobin 28.5 pg (27.0-31.0); Mean Corpuscular Volume 89.6 fL (78.0-98.0); Platelet Count 137 10x3/uL (130-400); RBC Distribution Width 14.6 % (11.5-14.5); Red Blood Cell (RBC) Count 3.09 mill/uL (4.20-5.40)
[2024-08-10] MEDS: Furosemide 20 MG TAB PO SCH (09:51)
[2024-08-10 11:45] VITALS: BP 129/60; TEMP 98.1
[2024-08-11] MEDS ORDERED: FLU (Fluad Triv) TS24-25 (65UP)/MF59C/PF 45 MCG/0.5 ML Syringe IM ONE (09:00)
== END 2024-08-10 16:21 | disposition home or self-care (01) | DRG 291 ==
LOC: ERS 10:10 → ERHOLD 13:21 → 2NO 19:32
PROVIDERS: ADMIT Family Medicine; ATTEND Internal Medicine
DX: I13.0 Hypertensive heart and chronic kidney disease with heart failure and stage 1 through stage 4 chronic kidney disease, or unspecified chronic kidney disease (principal); I50.33 Acute on chronic diastolic (congestive) heart failure; J96.91 Respiratory failure, unspecified with hypoxia; N17.9 Acute kidney failure, unspecified; N18.30 Chronic kidney disease, stage 3 unspecified; E11.22 Type 2 diabetes mellitus with diabetic chronic kidney disease; E78.5 Hyperlipidemia, unspecified; Z95.810 Presence of automatic (implantable) cardiac defibrillator; M81.0 Age-related osteoporosis without current pathological fracture; Z98.890 Other specified postprocedural states; Z79.4 Long term (current) use of insulin; Z79.899 Other long term (current) drug therapy; I42.2 Other hypertrophic cardiomyopathy
CPT/HCPCS: 36415; 36416; 71045; 80048; 80053; 83880; 84484; 85025; 93005; 94760; 96374; 97139; J1650; J1815; J1940

== ENCOUNTER 2025-04-12 17:06 | Emergency (ER) | payer MEDICARE ==
[2025-04-12] MEDS ORDERED: Ibuprofen 800 MG TAB ONE (19:27)
== END 2025-04-12 20:25 | disposition home or self-care (01) ==
LOC: ERS 17:06
DX: S79.922A Unspecified injury of left thigh, initial encounter (principal); S89.92XA Unspecified injury of left lower leg, initial encounter; I50.9 Heart failure, unspecified; E11.9 Type 2 diabetes mellitus without complications; Z75.8 Other problems related to medical facilities and other health care; W19.XXXA Unspecified fall, initial encounter
CPT/HCPCS: 99283